=== PATIENT | female | born 1980 | race African-American/Black ===

== ENCOUNTER 2017-03-21 09:09 | Emergency (ER) | payer MEDICAID ==
[~2017-03-21] VITALS: Ht 162.6 cm; Wt 78.0 kg
[~2017-03-21 09:09] MED LIST: CEPH-569; MOTRIN
[2017-03-21] MEDS ORDERED: KETOROLAC 60MG/2ML VIAL IM ONE (11:00)
[2017-03-21] MEDS ORDERED: IBUPROFEN 600MG TABLET PO ONE (11:15)
[2017-03-21 12:59] VITALS: BP 142/86
== END 2017-03-21 13:04 | disposition home or self-care (01) ==
LOC: ER 09:09
DX: S92.251A Displaced fracture of navicular [scaphoid] of right foot, initial encounter for closed fracture (principal); J45.909 Unspecified asthma, uncomplicated; F17.200 Nicotine dependence, unspecified, uncomplicated; X58.XXXA Exposure to other specified factors, initial encounter; Y93.89 Activity, other specified; Y92.89 Other specified places as the place of occurrence of the external cause; Y99.8 Other external cause status
CPT/HCPCS: 29125; 73090; 73110; 73130; 81025; 99284; A4565

== ENCOUNTER 2017-11-03 11:42 | Emergency (ER) | payer MEDICAID ==
[~2017-11-03] VITALS: Ht 162.6 cm; Wt 76.0 kg
[2017-11-03 12:07] VITALS: BP 160/88
[2017-11-03] MEDS ORDERED: IPRATROPIUM BROMIDE (0.02%) 0.5MG/2.5ML NEB HHN STA (12:08)
[2017-11-03] MEDS ORDERED: ALBUTEROL (0.083%) 2.5MG/3ML NEB HHN STA (12:08)
[2017-11-03] MEDS ORDERED: PREDNISONE 20MG TABLET PO STA (12:08)
[2017-11-03] MEDS ORDERED: ALBUTEROL (0.083%) 2.5MG/3ML NEB ONE (12:27)
[2017-11-03] MEDS ORDERED: IPRATROPIUM BROMIDE (0.02%) 0.5MG/2.5ML NEB ONE (12:27)
== END 2017-11-03 15:15 | disposition left against medical advice (07) ==
LOC: ER 13:56
DX: J45.909 Unspecified asthma, uncomplicated (principal); F17.210 Nicotine dependence, cigarettes, uncomplicated
CPT/HCPCS: 94640; 99283; J7611

== ENCOUNTER 2019-02-20 06:19 | Emergency (ER) | payer MEDICAID ==
[~2019-02-20] VITALS: Ht 162.6 cm; Wt 93.0 kg
[2019-02-20 11:09] VITALS: BP 130/65
== END 2019-02-20 14:36 | disposition home or self-care (01) ==
LOC: ER 14:08
DX: J39.9 Disease of upper respiratory tract, unspecified (principal); J45.909 Unspecified asthma, uncomplicated; F17.200 Nicotine dependence, unspecified, uncomplicated
CPT/HCPCS: 99283

== ENCOUNTER 2019-05-11 18:14 | Emergency (ER) | payer SELFPAY ==
[~2019-05-11] VITALS: Ht 165.1 cm; Wt 79.0 kg
[2019-05-11] MEDS ORDERED: IBUPROFEN 600MG TABLET PO STA (22:40)
[2019-05-11 23:09] VITALS: BP 150/104
== END 2019-05-12 00:37 | disposition home or self-care (01) ==
LOC: ER 18:14
DX: M25.531 Pain in right wrist (principal); F17.210 Nicotine dependence, cigarettes, uncomplicated; J45.909 Unspecified asthma, uncomplicated; Z98.890 Other specified postprocedural states; Z97.5 Presence of (intrauterine) contraceptive device; W07.XXXA Fall from chair, initial encounter; Y93.89 Activity, other specified; Y92.018 Other place in single-family (private) house as the place of occurrence of the external cause; Y99.8 Other external cause status
CPT/HCPCS: 29125; 73100; 99283

== ENCOUNTER 2020-11-23 18:51 | Emergency (ER) | payer MEDICAID ==
[~2020-11-23] VITALS: Ht 165.1 cm; Wt 97.4 kg
[2020-11-23] MEDS ORDERED: CLINDAMYCIN HCL 150MG CAPSULE PO ONE (21:30)
[2020-11-23] MEDS ORDERED: CLIN300C12 MT (21:32)
[2020-11-23 23:54] VITALS: BP 160/95
== END 2020-11-23 23:55 | disposition home or self-care (01) ==
LOC: ER 18:51
DX: K04.7 Periapical abscess without sinus (principal); F17.200 Nicotine dependence, unspecified, uncomplicated; J45.909 Unspecified asthma, uncomplicated; I10 Essential (primary) hypertension; I49.9 Cardiac arrhythmia, unspecified; Z13.9 Encounter for screening, unspecified
CPT/HCPCS: 81025; 93005; 99283; 99406